=== PATIENT | female | born 1980 | race Caucasian/White ===

== ENCOUNTER 2017-01-07 18:03 | Emergency (ER) | payer MEDICAID, OTHER, SELFPAY ==
[2017-01-07 18:23] VITALS: BP 140/74
[2017-01-07] MEDS ORDERED: Acetaminophen 325 MG Tab PO ONE (18:37)
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
== END 2017-01-07 18:44 | disposition home or self-care (01) ==
LOC: MW.ED 18:03
DX: S16.1XXA Strain of muscle, fascia and tendon at neck level, initial encounter (principal); Z88.6 Allergy status to analgesic agent; Z88.1 Allergy status to other antibiotic agents; E66.9 Obesity, unspecified; Z68.43 Body mass index [BMI] 50.0-59.9, adult; Z90.49 Acquired absence of other specified parts of digestive tract; Z90.710 Acquired absence of both cervix and uterus; X50.0XXA Overexertion from strenuous movement or load, initial encounter
CPT/HCPCS: 99283

== ENCOUNTER 2017-07-01 11:43 | Emergency (ER) | payer MEDICAID, OTHER, SELFPAY ==
--- NOTE | 2017-07-01 11:54 | EDM.PDOC ---
ED HPI GENERAL MEDICAL PROBLEM - General Stated Complaint: PT HAS STOMACH PAINS Time Seen by Provider: 07/01/17 11:54 Source of Information: Reports: Patient History Limitations: Reports: No Limitations - History of Present Illness INITIAL COMMENTS - FREE TEXT/NARRATIVE: HISTORY AND PHYSICAL: History of present illness: Patient is a 37-year-old female who presents to the emergency room with complaints of left upper abdominal pain/low rib pain 3 days. She states that 4 days ago she did have her 9-year-old daughter (about 65 lbs) who was playing rough, jump and land on her left upper abdomen. She states that the next day she started to have some abdominal pain in that area. She was concerned that she may be constipated so she had been taking some stool softeners over-the- counter. She has had regular bowel movements since that time. She denies any flank pain, dysuria, blood in her stools, diarrhea/constipation, fever, chills, nausea or vomiting. Denies any chance of as she has had a hysterectomy. Review of systems: As per history of present illness and below otherwise all systems reviewed and negative. Past medical history: As per history of present illness and as reviewed below otherwise noncontributory. Surgical history: As per history of present illness and as reviewed below otherwise noncontributory. Social history: No reported history of drug or alcohol abuse. Family history: As per history of present illness and as reviewed below otherwise noncontributory. Physical exam: General: Well-developed and well-nourished 37-year-old female. Alert and oriented. Nontoxic appearing and in no acute distress. HEENT: Atraumatic, normocephalic, pupils reactive, negative for conjunctival pallor or scleral icterus, mucous membranes moist, throat clear, neck supple, nontender, trachea midline. Lungs: Clear to auscultation, breath sounds equal bilaterally, left lower chest wall tenderness with palpation (no bruising/swelling noted) Heart: S1S2, regular rate and rhythm Abdomen: Soft, nondistended, left upper quadrant tenderness. Negative for masses or hepatosplenomegaly. Negative for costovertebral tenderness. Pelvis: Stable nontender. Genitourinary: Deferred. Rectal: Deferred. Extremities: Atraumatic, moves all extremities per self without difficulty or deficits, negative for cords or calf pain. Neurovascular unremarkable. Neuro: Awake, alert, oriented. Cranial nerves II through XII unremarkable. Cerebellum unremarkable. Motor and sensory unremarkable throughout. Exam nonfocal. Patient is unable to void and does not want catheterization. CT of the abdomen shows no acute disease. Mild lymph node which appears to be reactive in nature. Informed patient of the lab results along with the CT results. She does have a slightly elevated AST and ALT. Encouraged her to follow up with her primary care provider for follow-up of this. Patient has an allergy to NSAIDs, encouraged her to use Tylenol [id number]. #10 Tramadol prescribed (NRF), as patient reports she is not managed with Tylenol at home. Encouraged her to alternate ice and heat. F/U with PCP in the next couple days. Diagnostics: CBC, CMP, amylase, lipase, UA and a chest x-ray, CT abdomen and pelvis Therapeutics: IV fluid Impression: #1 Abdominal pain #2 Rib contusion Plan: 1. Your lab work shows a slight bump in your AST/ALT (liver enzymes) which is not emergent, but should be followed within the next few weeks. 2. Chest x-ray and CT scans are normal at this time. 3. Please use Tylenol as needed for pain management. Alternating ice and heat. 4. Follow-up with your primary care provider in the next couple days. Return to the ED as needed and as discussed. Definitive disposition and diagnosis as appropriate pending reevaluation and review of above. Duration: Day(s): Location: Reports: Chest, Abdomen Left Upper Abdomen Pain Score (Numeric/FACES): 5 - Related Data Allergies Allergy/AdvReac Type Severity Reaction Status Date / Time aspirin Allergy Hives Verified 06/18/17 14:48 MST ketorolac tromethamine Allergy Difficulty Verified 06/18/17 14:48 MST [From Toradol] Breathing NSAIDS (Non-Steroidal Allergy Airway Verified 06/18/17 14:48 MST Anti-Inflamma Tightness, hives metronidazole [From Flagyl] AdvReac Diarrhea Verified 06/18/17 14:48 MST Home Meds: Home Meds Albuterol/Ipratropium [Combivent Respimat] 4 gm IH ASDIRECTED PRN 07/01/17 [ History] Past Medical History - Past Health History Medical/Surgical History: Denies Medical/Surgical History HEENT History: Reports: Other (See Below) Other HEENT History: cyst to posterior left ear Cardiovascular History: Reports: None Other Cardiovascular History: "palpitations" Respiratory History: Reports: Bronchitis, Recurrent Gastrointestinal History: Reports: None Genitourinary History: Reports: None [employer] WORKER History: Reports: 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 Uterine Bleeding, Other (See Below) Other OB/BYN History: blood clot in right ovary Musculoskeletal History: Reports: Fracture Neurological History: Reports: None Psychiatric History: Reports: None Endocrine/Metabolic History: Reports: Obesity/BMI 30+ Hematologic History: Reports: None Immunologic History: Reports: None Oncologic (Cancer) History: Reports: None Dermatologic History: Reports: None - Infectious Disease History Infectious Disease History: Reports: Chicken Pox - Past Surgical History Head Surgeries/Procedures: Reports: None GI Surgical History: Reports: Appendectomy, Cholecystectomy Female Surgical History: Reports: Hysterectomy Musculoskeletal Surgical History: Reports: Arthroscopic Procedure Social & Family History - Family History Family Medical History: Noncontributory - Tobacco Use Smoking Status *Q: Never Smoker Years of Tobacco use: 10 Packs/Tins Daily: 0.2 Used Tobacco, but Quit: Yes Month Tobacco Last Used: 1995 Second Hand Smoke Exposure: No - Caffeine Use Caffeine Use: Reports: Soda - Alcohol Use Days Per Week of Alcohol Use: 3 Number of Drinks Per Day: 1 Total Drinks Per Week: 3 - Recreational Drug Use Recreational Drug Use: No ED ROS GENERAL - Review of Systems Review Of Systems: ROS reveals no pertinent complaints other than HPI. ED EXAM, GI/ABD - Physical Exam Exam: See Below (See dictation) Course - Vital Signs Last Recorded V/S: Last Vital Signs Temp 97.1 F 07/01/17 12:11 Pulse 74 07/01/17 12:11 Resp 18 07/01/17 12:11 BP 122/58 L 07/01/17 12:11 Pulse Ox 96 07/01/17 12:11 - Orders/Labs/Meds Orders: Active Orders 24 hr Category Date Time Status Abdomen Pelvis w Cont [CT] Stat Exams 07/01/17 12:15 Taken Chest 2V [CR] Stat Exams 07/01/17 12:20 Taken UA W/MICROSCOPIC [URIN] Stat Lab 07/01/17 12:12 Uncollected Labs: Laboratory Tests 07/01/17 07/01/17 Range/Units 12:20 12:20 WBC 7.74 (4.0-11.0) K/uL RBC 4.77 (4.30-5.90) M/uL Hgb 12.6 (12.0-16.0) g/dL Hct 38.5 (36.0-46.0) % MCV 80.7 (80.0-98.0) fL MCH 26.4 L (27.0-32.0) pg MCHC 32.7 (31.0-37.0) g/dL RDW Std Deviation 44.2 (28.0-62.0) fl RDW Coeff of Mallory 15 (11.0-15.0) % Plt Count 245 (150-400) K/uL MPV 9.90 (7.40-12.00) fL Neut % (Auto) 71.3 (48.0-80.0) % Lymph % (Auto) 22.0 (16.0-40.0) % Green % (Auto) 6.6 (0.0-15.0) % Eos % (Auto) 0.0 (0.0-7.0) % Baso % (Auto) 0.1 (0.0-1.5) % Neut # (Auto) 5.5 (1.4-5.7) K/uL Lymph # (Auto) 1.7 (0.6-2.4) K/uL Green # (Auto) 0.5 (0.0-0.8) K/uL Eos # (Auto) 0.0 (0.0-0.7) K/uL Baso # (Auto) 0.0 (0.0-0.1) K/uL Nucleated RBC % 0.0 /100WBC Nucleated RBCs # 0 K/uL Sodium 139 (136-146) mmol/L Potassium 3.9 (3.5-5.1) mmol/L Chloride 109 (98-110) mmol/L Carbon Dioxide 22 (21-31) mmol/L BUN 12 (6.0-23.0) mg/dL Creatinine 0.7 (0.6-1.5) mg/dL Est Cr Clr Drug Dosing 118.99 mL/min Estimated GFR (MDRD) > 60.0 ml/min Glucose 99 (60-110) mg/dL Calcium 8.6 L (8.8-10.8) mg/dL Total Bilirubin 0.6 (0.1-1.5) mg/dL AST 41 H (5-40) IU/L ALT 76 H (8-54) IU/L Alkaline Phosphatase 99 (40-150) Total Protein 7.1 (6.0-8.0) g/dL Albumin 3.8 (3.5-5.0) g/dL Globulin 3.3 (2.0-3.5) g/dL Albumin/Globulin Ratio 1.2 L (1.3-2.8) Amylase 23 (10-90) U/L Lipase 9 (7-80) U/L Meds: Medications Discontinued Medications Generic Name Dose Route Start Last Admin Trade Name Freq PRN Reason Stop Dose Admin Sodium Chloride 1,000 mls @ 999 mls/hr 07/01/17 12:15 07/01/17 12:35 Normal Saline IV 07/01/17 13:15 999 mls/hr STAT ONE Administration Iopamidol 100 ml 07/01/17 12:48 07/01/17 12:50 Isovue-370 (76%) IVPUSH 07/01/17 12:49 100 ml ONETIME STA Administration Morphine Sulfate 2 mg 07/01/17 13:40 Morphine IVPUSH 07/01/17 13:41 ONETIME ONE Departure - Departure Time of Disposition: 13:47 Disposition: Home, Self-Care 01 Clinical Impression: Abdominal pain Qualifiers: Abdominal location: left upper quadrant Qualified Code(s): R10.12 - Left upper quadrant pain Contusion of rib on left side Qualifiers: Encounter type: initial encounter Qualified Code(s): S20.212A - Contusion of left front wall of thorax, initial encounter - Discharge Information Referrals: PCP,None [Primary Care Provider] - Additional Instructions: My general discharge The following information is given to patients seen in the emergency department who are being discharged to home. This information is to outline your options for follow-up care. We provide all patients seen in our emergency department with a follow-up referral. The need for follow-up, as well as the timing and circumstances, are variable depending upon the specifics of your emergency department visit. If you don't have a primary care physician on staff, we will provide you with a referral. We always advise you to contact your personal physician following an emergency department visit to inform them of the circumstance of the visit and for follow-up with them and/or the need for any referrals to a consulting specialist. The emergency department will also refer you to a specialist when appropriate. This referral assures that you have the opportunity for follow-up care with a specialist. All of these measure are taken in an effort to provide you with optimal care, which includes your follow-up. Under all circumstances we always encourage you to contact your private physician who remains a resource for coordinating your care. When calling for follow-up care, please make the office aware that this follow-up is from your recent emergency room visit. If for any reason you are refused follow-up, please contact the [facility] Emergency Department at and asked to speak to the emergency department charge nurse. [facility] [address] [place] [id number] 1. Your lab work shows a slight bump in your AST/ALT (liver enzymes) which is not emergent, but should be followed within the next few weeks. 2. Chest x-ray and CT scans are normal at this time. 3. Please use Tylenol as needed for pain management. Tramadol for night time use as it may cause drowsiness. Alternating ice and heat. 4. Follow-up with your primary care provider in the next couple days. Return to the ED as needed and as discussed. - My Orders Last 24 Hours: My Active Orders 07/01/17 12:12 UA W/MICROSCOPIC [URIN] Stat 07/01/17 12:15 Abdomen Pelvis w Cont [CT] Stat 07/01/17 12:20 Chest 2V [CR] Stat - Assessment/Plan Last 24 Hours: My Active Orders 07/01/17 12:12 UA W/MICROSCOPIC [URIN] Stat 07/01/17 12:15 Abdomen Pelvis w Cont [CT] Stat 07/01/17 12:20 Chest 2V [CR] Stat
[2017-07-01] MEDS ORDERED: Sodium Chloride 0.9% 1,000 ML IV ONE (12:15)
[2017-07-01] MEDS ORDERED: Iopamidol 755 Mg/ML 100 ML Bottle IVPUSH STA (12:48)
[2017-07-01 12:50] LABS: CHLORIDE,CL 109 mmol/L (98-110); SODIUM,NA 139 mmol/L (136-146)
[2017-07-01] MEDS ORDERED: Morphine 2 MG/ML Syringe IVPUSH ONE (13:40)
[2017-07-01 14:24] VITALS: BP 135/81
--- NOTE | 2017-07-03 14:16 | CR ---
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 Site : 1980 Study: XRay Chest [id number]/[id number] 1:08:30 PM Ordering Physician: Doctor Stephenson Final Report: INDICATION: Pain. Shortness of breath. TECHNIQUE: PA and lateral chest x-ray. Findings : Relatively shallow inspiration. Heart size normal. Lungs clear without infiltrate. Chest otherwise negative without acute disease. Dictated by Mick Dee MD @ Jul 01 2017 1:28PM (Electronic Signature) Report Signed by Proxy. SABA
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
== END 2017-07-01 14:24 | disposition home or self-care (01) ==
LOC: MW.ED 11:43
DX: S20.212A Contusion of left front wall of thorax, initial encounter (principal); R10.12 Left upper quadrant pain; Z88.6 Allergy status to analgesic agent; Z88.8 Allergy status to other drugs, medicaments and biological substances; X58.XXXA Exposure to other specified factors, initial encounter
CPT/HCPCS: 36415; 71046; 74177; 80053; 82150; 83690; 85025; 96361; 96374; 99284; J2270; J7040; Q9967; 99283

== ENCOUNTER 2017-09-04 16:07 | Emergency (ER) | payer MEDICAID, BC ==
[2017-09-04] MEDS ORDERED: Sodium Chloride 0.9% 1,000 ML IV ONE (16:12)
[2017-09-04] MEDS ORDERED: Ondansetron 4 MG/2 ML SDV IVPUSH ONE (16:15)
--- NOTE | 2017-09-04 16:36 | EDM.PDOC ---
ED HPI GENERAL MEDICAL PROBLEM - General Chief Complaint: Abdominal Pain Stated Complaint: STOMACH PAIN Time Seen by Provider: 09/04/17 16:12 Source of Information: Reports: Patient History Limitations: Reports: No Limitations - History of Present Illness INITIAL COMMENTS - FREE TEXT/NARRATIVE: HISTORY AND PHYSICAL: History of present illness: Patient is a 37-year-old female who presents to the emergency room today with complaints of left upper abdominal pain. She states on move a lot of heavy furniture and started to have left upper abdominal pain. She states she had take the whole weekend to lay down and rest as any movement or lifting of her left arm would cause increased pain and discomfort. Pain is to the left upper quadrant/rib area. She denies any fevers, chills, chest pain or shortness of breath. She denies any constipation, diarrhea or dysuria. Denies any blood in her stools. Review of systems: As per history of present illness and below otherwise all systems reviewed and negative. Past medical history: As per history of present illness and as reviewed below otherwise noncontributory. Surgical history: As per history of present illness and as reviewed below otherwise noncontributory. Social history: No reported history of drug or alcohol abuse. Family history: As per history of present illness and as reviewed below otherwise noncontributory. Physical exam: General: Well-developed and well-nourished 37-year-old female. Alert and oriented. Nontoxic appearing and in no acute distress. HEENT: Atraumatic, normocephalic, pupils equal and reactive bilaterally, negative for conjunctival pallor or scleral icterus, mucous membranes moist, throat clear, neck supple, nontender, trachea midline. No drooling or trismus noted. No meningeal signs Lungs: Clear to auscultation, breath sounds equal bilaterally, chest nontender. Heart: S1S2, regular rate and rhythm without overt murmur Abdomen: Soft, nondistended, obese, left upper quadrant tenderness. Negative for masses or hepatosplenomegaly. Negative for costovertebral tenderness. Pelvis: Stable nontender. Genitourinary: Deferred. Rectal: Deferred. Skin: Intact, warm, dry. No lesions or rashes noted. Extremities: Atraumatic, negative for cords or calf pain. Neurovascular unremarkable. Neuro: Awake, alert, oriented. Cranial nerves II through XII unremarkable. Cerebellum unremarkable. Motor and sensory unremarkable throughout. Exam nonfocal. Notes: Labs are within normal limits, although her liver enzymes are slightly elevated. CT of the abdomen shows no acute findings. Discussed these results with the patient. Due to the patient's story of doing a lot of heavy lifting I do feel that this is likely a muscular strain. Patient is requesting something for pain for home use. Will prescribe 10 tablets of tramadol. Encouraged her to do supportive care measures at home. Follow up with her primary caregiver in the next couple days. She voices understanding and is agreeable to plan of care. She denies any further questions at this time. Diagnostics: CBC, CMP, UA, HCGU, Amylase, Lipase, Therapeutics: IV fluid, Zofran, morphine Impression: Abdominal pain, nonspecific Muscular strain Plan: 1. Please use Tylenol and or ibuprofen as needed for pain management. Tramadol has been prescribed for moderate to severe pain. This medication may cause drowsiness so do not take while driving or needing to be functioning outside of the house. 2. Gentle heat and stretching to the area. 3. Your liver enzymes were slightly elevated today. Please follow-up with your area care provider in the next week or 2 for reevaluation. Return to the ED as needed and as discussed. Definitive disposition and diagnosis as appropriate pending reevaluation and review of above. Duration: Day(s): Location: Reports: Chest, Abdomen left abdominal Pain Score (Numeric/FACES): 8 - Related Data Allergies Allergy/AdvReac Type Severity Reaction Status Date / Time aspirin Allergy Hives Verified 09/04/17 16:20 ketorolac tromethamine Allergy Difficulty Verified 09/04/17 16:20 [From Toradol] Breathing NSAIDS (Non-Steroidal Allergy Airway Verified 09/04/17 16:20 Anti-Inflamma Tightness, hives metronidazole [From Flagyl] AdvReac Diarrhea Verified 09/04/17 16:20 Home Meds: Home Meds Albuterol/Ipratropium [Combivent Respimat] 4 gm IH ASDIRECTED PRN 07/01/17 [ History] Enoxaparin Sodium [Lovenox] 150 mg SQ BID 08/08/17 [History] Past Medical History - Past Health History Medical/Surgical History: Denies Medical/Surgical History HEENT History: Reports: Other (See Below) Other HEENT History: cyst to posterior left ear Cardiovascular History: Reports: Other (See Below) Other Cardiovascular History: "palpitations" Respiratory History: Reports: Bronchitis, Recurrent Gastrointestinal History: Reports: None Genitourinary History: Reports: None MEAT HOSTESS History: Reports: 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 Uterine Bleeding, Other (See Below) Other OB/BYN History: blood clot in right ovary Musculoskeletal History: Reports: Fracture Neurological History: Reports: None Psychiatric History: Reports: None Endocrine/Metabolic History: Reports: Obesity/BMI 30+ Hematologic History: Reports: Other (See Below) Immunologic History: Reports: None Oncologic (Cancer) History: Reports: None Dermatologic History: Reports: None - Infectious Disease History Infectious Disease History: Reports: Chicken Pox - Past Surgical History Head Surgeries/Procedures: Reports: None HEENT Surgical History: Reports: None Cardiovascular Surgical History: Reports: None Respiratory Surgical History: Reports: None GI Surgical History: Reports: Appendectomy, Cholecystectomy Female Surgical History: Reports: Hysterectomy Endocrine Surgical History: Reports: None Neurological Surgical History: Reports: None Musculoskeletal Surgical History: Reports: Arthroscopic Procedure Dermatological Surgical History: Reports: None Social & Family History - Family History Family Medical History: Noncontributory - Tobacco Use Smoking Status *Q: Never Smoker Years of Tobacco use: 10 Packs/Tins Daily: 0.2 Used Tobacco, but Quit: Yes Month/Year Tobacco Last Used: 1995 Second Hand Smoke Exposure: No - Caffeine Use Caffeine Use: Reports: None - Alcohol Use Days Per Week of Alcohol Use: 3 Number of Drinks Per Day: 1 Total Drinks Per Week: 3 - Recreational Drug Use Recreational Drug Use: No ED ROS GENERAL - Review of Systems Review Of Systems: ROS reveals no pertinent complaints other than HPI. ED EXAM, GI/ABD - Physical Exam Exam: See Below (See dictation) Course - Vital Signs Last Recorded V/S: Last Vital Signs Temp 97.5 F 09/04/17 16:21 Pulse 78 09/04/17 16:21 Resp 18 09/04/17 16:21 BP 138/86 09/04/17 16:21 Pulse Ox 99 09/04/17 16:21 - Orders/Labs/Meds Orders: Active Orders 24 hr Category Date Time Status Abdomen Pelvis w Cont [CT] Stat Exams 09/04/17 17:52 Taken HCG QUALITATIVE,URINE [URCHEM] Stat Lab 09/04/17 16:12 Ordered UA W/MICROSCOPIC [URIN] Stat Lab 09/04/17 16:12 Ordered Labs: Laboratory Tests 09/04/17 09/04/17 09/04/17 Range/Units 17:05 17:05 17:13 WBC 9.25 (4.0-11.0) K/uL RBC 4.75 (4.30-5.90) M/uL Hgb 12.7 (12.0-16.0) g/dL Hct 38.2 (36.0-46.0) % MCV 80.4 (80.0-98.0) fL MCH 26.7 L (27.0-32.0) pg MCHC 33.2 (31.0-37.0) g/dL RDW Std Deviation 44.4 (28.0-62.0) fl RDW Coeff of Mallory 16 H (11.0-15.0) % Plt Count 239 (150-400) K/uL MPV 9.40 (7.40-12.00) fL Neut % (Auto) 73.1 (48.0-80.0) % Lymph % (Auto) 20.6 (16.0-40.0) % Weakley % (Auto) 6.2 (0.0-15.0) % Eos % (Auto) 0.0 (0.0-7.0) % Baso % (Auto) 0.1 (0.0-1.5) % Neut # (Auto) 6.8 H (1.4-5.7) K/uL Lymph # (Auto) 1.9 (0.6-2.4) K/uL Weakley # (Auto) 0.6 (0.0-0.8) K/uL Eos # (Auto) 0.0 (0.0-0.7) K/uL Baso # (Auto) 0.0 (0.0-0.1) K/uL Nucleated RBC % 0.0 /100WBC Nucleated RBCs # 0 K/uL Sodium 142 (136-145) mmol/L Potassium 3.7 (3.5-5.1) mmol/L Chloride 106 (98-107) mmol/L Carbon Dioxide 27.0 (21.0-32.0) mmol/L BUN 7 (7.0-18.0) mg/dL Creatinine 0.7 (0.6-1.0) mg/dL Est Cr Clr Drug Dosing 118.99 mL/min Estimated GFR (MDRD) > 60.0 ml/min Glucose 88 (74-106) mg/dL Calcium 8.3 L (8.5-10.1) mg/dL Total Bilirubin 0.3 (0.2-1.0) mg/dL AST 58 H (15-37) IU/L ALT 72 H (14-63) IU/L Alkaline Phosphatase 105 (46-116) U/L Total Protein 6.6 (6.4-8.2) g/dL Albumin 3.2 L (3.4-5.0) g/dL Globulin 3.4 (2.0-3.5) g/dL Albumin/Globulin Ratio 0.9 L (1.3-2.8) Amylase 29 (25-115) U/L Lipase 158 (73-393) U/L HCG, Qual NEGATIVE (NEG) Meds: Medications Discontinued Medications Generic Name Dose Route Start Last Admin Trade Name Gerber PRN Reason Stop Dose Admin Sodium Chloride 1,000 mls @ 999 mls/hr 09/04/17 16:12 09/04/17 17:37 Normal Saline IV 09/04/17 17:12 999 mls/hr STAT ONE Administration Iopamidol 100 ml 09/04/17 18:48 09/04/17 18:53 Isovue-370 (76%) IVPUSH 09/04/17 18:49 100 ml ONETIME ONE Administration Morphine Sulfate 4 mg 09/04/17 17:37 09/04/17 17:59 Morphine IVPUSH 09/04/17 17:38 4 mg ONETIME ONE Administration Ondansetron HCl 8 mg 09/04/17 16:15 09/04/17 17:38 Zofran IVPUSH 09/04/17 16:16 8 mg ONETIME ONE Administration Departure - Departure Time of Disposition: 19:26 Disposition: Home, Self-Care 01 Clinical Impression: Nonspecific abdominal pain Muscle strain of chest wall Qualifiers: Encounter type: initial encounter Qualified Code(s): S29.011A - Strain of muscle and tendon of front wall of thorax, initial encounter - Discharge Information Referrals: PCP,None [Primary Care Provider] - Forms: ED Department Discharge Additional Instructions: The following information is given to patients seen in the emergency department who are being discharged to home. This information is to outline your options for follow-up care. We provide all patients seen in our emergency department with a follow-up referral. The need for follow-up, as well as the timing and circumstances, are variable depending upon the specifics of your emergency department visit. If you don't have a primary care physician on staff, we will provide you with a referral. We always advise you to contact your personal physician following an emergency department visit to inform them of the circumstance of the visit and for follow-up with them and/or the need for any referrals to a consulting specialist. The emergency department will also refer you to a specialist when appropriate. This referral assures that you have the opportunity for follow-up care with a specialist. All of these measure are taken in an effort to provide you with optimal care, which includes your follow-up. Under all circumstances we always encourage you to contact your private physician who remains a resource for coordinating your care. When calling for follow-up care, please make the office aware that this follow-up is from your recent emergency room visit. If for any reason you are refused follow-up, please contact the [facility] Emergency Department at and asked to speak to the emergency department charge nurse. [facility] [address] [place] [id number] 1. Please use Tylenol and or ibuprofen as needed for pain management. Tramadol has been prescribed for moderate to severe pain. This medication may cause drowsiness so do not take while driving or needing to be functioning outside of the house. 2. Gentle heat and stretching to the area. 3. Your liver enzymes were slightly elevated today. Please follow-up with your area care provider in the next week or 2 for reevaluation. Return to the ED as needed and as discussed. - My Orders Last 24 Hours: My Active Orders 09/04/17 16:12 HCG QUALITATIVE,URINE [URCHEM] Stat UA W/MICROSCOPIC [URIN] Stat 09/04/17 17:52 Abdomen Pelvis w Cont [CT] Stat - Assessment/Plan Last 24 Hours: My Active Orders 09/04/17 16:12 HCG QUALITATIVE,URINE [URCHEM] Stat UA W/MICROSCOPIC [URIN] Stat 09/04/17 17:52 Abdomen Pelvis w Cont [CT] Stat
[2017-09-04] MEDS ORDERED: Morphine 4 MG/ML Syringe IVPUSH ONE (17:37)
[2017-09-04 17:43] LABS: CHLORIDE,CL 106 mmol/L (98-107); SODIUM,NA 142 mmol/L (136-145)
[2017-09-04] MEDS ORDERED: Iopamidol 612 MG/ML 100 ML Bottle IVPUSH ONE (18:34)
[2017-09-04] MEDS ORDERED: Iopamidol 755 Mg/ML 100 ML Bottle IVPUSH ONE (18:48)
[2017-09-04 19:25] VITALS: BP 138/68
--- NOTE | 2017-09-05 09:55 | CT ---
EXAM DATE: 09/04/17 PATIENT'S AGE: 37 Patient: ROSALINE FISHER Facility: [place], [place] Site . Site : [id number] Study: CT Abdomen/Pelvis [id number]/9/2018 7:02:39 PM Ordering Physician: Doctor Stephenson Final Report: INDICATION: Left-sided abdominal pain for [address] ABDOMEN AND PELVIS WITH CONTRAST TECHNIQUE: Multidetector CT imaging was performed through the abdomen and pelvis following intravenous contrast administration using 100 mL Isovue 370. Coronal and sagittal reconstructions were generated. COMPARISON: 07/01/2017 CT abdomen and pelvis. FINDINGS: Lower chest: Mild bibasilar lung ground-glass density most consistent with atelectasis. Liver: Within normal limits. Gallbladder and bile ducts: Status post cholecystectomy, as before. No biliary dilation identified. Pancreas: Unremarkable. Spleen: Normal. Adrenals: No nodules or masses. Kidneys, ureters, and urinary bladder: No renal masses or hydronephrosis. No bladder mass or definite wall thickening. Gastrointestinal tract: Normal caliber bowel without wall thickening. Status post appendectomy, as before. Abdominal wall: Several small subcutaneous nodules over the anterior abdominal wall, the largest on the right, possibly related to prior subcutaneous medication injections. Unchanged very small fat-containing umbilical hernia. Vascular structures: Normal for age. Peritoneum: No free air, abscess, or significant free fluid. Lymph nodes: No pathologically enlarged nodes identified. Reproductive organs: Status post hysterectomy, as before. No pelvic masses. Bones: Degenerative disc disease at the lumbosacral junction. IMPRESSION: 1. No definite acute abnormality identified. No cause for the patient`s symptoms is evident. 2. Nonacute additional findings as detailed above. SYED VILLA MD [employer] Dictated by Sacha Villa MD @ 09/04/2017 7:21:20 PM Dictated by: Sacha Villa MD @ 09/04/2017 19:22:01 (Electronic Signature) Report Signed by Proxy. SABA
== END 2017-09-04 19:58 | disposition home or self-care (01) ==
LOC: MW.ED 16:07
DX: S29.011A Strain of muscle and tendon of front wall of thorax, initial encounter (principal); E66.9 Obesity, unspecified; Z88.8 Allergy status to other drugs, medicaments and biological substances; Z88.6 Allergy status to analgesic agent; Z88.1 Allergy status to other antibiotic agents; Z87.891 Personal history of nicotine dependence; X50.9XXA Other and unspecified overexertion or strenuous movements or postures, initial encounter
CPT/HCPCS: 36415; 74177; 80053; 82150; 83690; 84703; 85025; 96361; 96374; 96375; 99284; J2270; J2405; J7040; Q9967; 99283

== ENCOUNTER 2017-10-02 12:36 | Emergency (ER) | payer BC, MEDICAID ==
--- NOTE | 2017-10-02 13:11 | EDM.PDOC ---
ED HPI GENERAL MEDICAL PROBLEM - General Chief Complaint: Lower Extremity Injury/Pain Stated Complaint: SWOLLEN LEGS Time Seen by Provider: 10/02/17 12:40 Source of Information: Reports: Patient History Limitations: Reports: No Limitations - History of Present Illness INITIAL COMMENTS - FREE TEXT/NARRATIVE: HISTORY AND PHYSICAL: History of present illness: Patient is a 37-year-old female who presents to the emergency room with complaints of left lower extremity pain and swelling. She states that her left ankle and foot have been painful over the past week. She denies any injury or trauma. Concerned she may have "somehow" injured her left foot just resulted in pain, difficulty weightbearing and soft tissue swelling. No previous surgery or trauma to the affected extremity. Denies any numbness or tingling. Review of systems: As per history of present illness and below otherwise all systems reviewed and negative. Past medical history: As per history of present illness and as reviewed below otherwise noncontributory. Surgical history: As per history of present illness and as reviewed below otherwise noncontributory. Social history: No reported history of drug or alcohol abuse. Family history: As per history of present illness and as reviewed below otherwise noncontributory. Physical exam: General: Well-developed and well-nourished 37-year-old female. Alert and oriented. Nontoxic appearing and in no acute distress HEENT: Atraumatic, normocephalic, pupils equal and reactive bilaterally, negative for conjunctival pallor or scleral icterus, mucous membranes moist, throat clear, neck supple, nontender, trachea midline. No drooling or trismus noted. No meningeal signs Lungs: Clear to auscultation, breath sounds equal bilaterally, chest nontender. Heart: S1S2, regular rate and rhythm without overt murmur Abdomen: Soft, nondistended, nontender. Negative for masses or hepatosplenomegaly. Negative for costovertebral tenderness. Pelvis: Stable nontender. Genitourinary: Deferred. Rectal: Deferred. Skin: Intact, warm, dry. No lesions or rashes noted. Extremities: Atraumatic, moves all extremities per self without difficulty or deficits, no pinpoint bony tenderness with palpation, full range of motion, strong pedal pulses bilaterally, negative for cords or calf pain. Neurovascular unremarkable. Neuro: Awake, alert, oriented. Cranial nerves II through XII unremarkable. Cerebellum unremarkable. Motor and sensory unremarkable throughout. Exam nonfocal. Notes: X-ray shows no acute abnormality, dislocation or fracture. We'll give her a Yimi wrap and crutches. She is unable to take anti-inflammatories. We'll give her a limited amount of tramadol. Encouraged her to follow-up with the orthopedic provider. She voices understanding and is agreeable to plan of care. Denies any further questions at this time. Diagnostics: X-ray Therapeutics: Yimi wrap, crutches Impression: Left foot pain Plan: 1. Rest, ice, elevate the affected extremity. 2. Yimi wrap and crutches for comfort. Non-weight bearing for the next 1-3 days. 3. Follow-up with the orthopedic provider next week, or sooner as needed. Return to the ED as needed and as discussed. Definitive disposition and diagnosis as appropriate pending reevaluation and review of above. Left Feet Pain Score (Numeric/FACES): 7 - Related Data Allergies Allergy/AdvReac Type Severity Reaction Status Date / Time aspirin Allergy Hives Verified 10/02/17 13:03 ketorolac tromethamine Allergy Difficulty Verified 10/02/17 13:03 [From Toradol] Breathing NSAIDS (Non-Steroidal Allergy Airway Verified 10/02/17 13:03 Anti-Inflamma Tightness, hives metronidazole [From Flagyl] AdvReac Diarrhea Verified 10/02/17 13:03 Home Meds: Home Meds . 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 Uterine Bleeding, Other (See Below) Other OB/BYN History: blood clot in right ovary Musculoskeletal History: Reports: Fracture Neurological History: Reports: None Psychiatric History: Reports: None Endocrine/Metabolic History: Reports: Obesity/BMI 30+ Hematologic History: Reports: Other (See Below) Immunologic History: Reports: None Oncologic (Cancer) History: Reports: None Dermatologic History: Reports: None - Infectious Disease History Infectious Disease History: Reports: Chicken Pox - Past Surgical History Head Surgeries/Procedures: Reports: None HEENT Surgical History: Reports: None Cardiovascular Surgical History: Reports: None Respiratory Surgical History: Reports: None GI Surgical History: Reports: Appendectomy, Cholecystectomy Female Surgical History: Reports: Hysterectomy Endocrine Surgical History: Reports: None Neurological Surgical History: Reports: None Musculoskeletal Surgical History: Reports: Arthroscopic Procedure Dermatological Surgical History: Reports: None Social & Family History - Family History Family Medical History: Noncontributory - Tobacco Use Smoking Status *Q: Never Smoker Years of Tobacco use: 10 Packs/Tins Daily: 0.2 Used Tobacco, but Quit: Yes Month/Year Tobacco Last Used: 1995 Second Hand Smoke Exposure: No - Caffeine Use Caffeine Use: Reports: None - Alcohol Use Days Per Week of Alcohol Use: 3 Number of Drinks Per Day: 1 Total Drinks Per Week: 3 - Recreational Drug Use Recreational Drug Use: No Review of Systems - Review of Systems Review Of Systems: ROS reveals no pertinent complaints other than HPI. ED EXAM, GENERAL - Physical Exam Exam: See Below (See dictation) Course - Vital Signs Last Recorded V/S: Last Vital Signs Temp 96.8 F 10/02/17 12:59 Pulse 78 10/02/17 12:59 Resp 18 10/02/17 12:59 BP 134/63 10/02/17 12:59 Pulse Ox 99 10/02/17 12:59 - Orders/Labs/Meds Orders: Active Orders 24 hr Category Date Time Status DME for Discharge [COMM] Stat Oth 10/02/17 14:16 Ordered Departure - Departure Time of Disposition: 14:14 Disposition: Home, Self-Care 01 Clinical Impression: Foot pain, left - Discharge Information Instructions: Acute Pain, Adult Referrals: PCP,None [Primary Care Provider] - Forms: ED Department Discharge Additional Instructions: The following information is given to patients seen in the emergency department who are being discharged to home. This information is to outline your options for follow-up care. We provide all patients seen in our emergency department with a follow-up referral. The need for follow-up, as well as the timing and circumstances, are variable depending upon the specifics of your emergency department visit. If you don't have a primary care physician on staff, we will provide you with a referral. We always advise you to contact your personal physician following an emergency department visit to inform them of the circumstance of the visit and for follow-up with them and/or the need for any referrals to a consulting specialist. The emergency department will also refer you to a specialist when appropriate. This referral assures that you have the opportunity for follow-up care with a specialist. All of these measure are taken in an effort to provide you with optimal care, which includes your follow-up. Under all circumstances we always encourage you to contact your private physician who remains a resource for coordinating your care. When calling for follow-up care, please make the office aware that this follow-up is from your recent emergency room visit. If for any reason you are refused follow-up, please contact the [facility] Emergency Department at and asked to speak to the emergency department charge nurse. [facility] [address], [address] [place] [address] 1. Rest, ice, elevate the affected extremity. 2. Yimi wrap and crutches for comfort. Non-weight bearing for the next 1-3 days. 3. Follow-up with the orthopedic provider next week, or sooner as needed. Return to the ED as needed and as discussed. - My Orders Last 24 Hours: My Active Orders 10/02/17 14:16 DME for Discharge [COMM] Stat - Assessment/Plan Last 24 Hours: My Active Orders 10/02/17 14:16 DME for Discharge [COMM] Stat
--- NOTE | 2017-10-02 14:01 | CR ---
EXAMINATION: Left foot HISTORY: Pain COMPARISON: None TECHNIQUE: 3 views FINDINGS/IMPRESSION: There is no acute osseous abnormality, dislocation, or fracture. Bone mineraliza tion and joint spaces appear normal. Mild soft tissue swelling dorsally and laterally.
[2017-10-02 14:56] VITALS: BP 114/71
== END 2017-10-02 14:58 | disposition home or self-care (01) ==
LOC: MW.ED 12:36
DX: M79.672 Pain in left foot (principal); Z88.6 Allergy status to analgesic agent; Z88.1 Allergy status to other antibiotic agents; Z88.8 Allergy status to other drugs, medicaments and biological substances; Z87.891 Personal history of nicotine dependence
CPT/HCPCS: 73630-26-LT; 73630-LT; 99284

== ENCOUNTER 2017-11-16 00:27 | Emergency (ER) | payer BC, MEDICAID ==
[2017-11-16 00:46] VITALS: BP 146/90
--- NOTE | 2017-11-16 01:01 | EDM.PDOC ---
ED HPI GENERAL MEDICAL PROBLEM - General Chief Complaint: Upper Extremity Injury/Pain Stated Complaint: POSSIBLE TEAR OF RIGHT ROTATOR CUFF Time Seen by Provider: 11/16/17 00:54 Source of Information: Reports: Patient History Limitations: Reports: No Limitations - History of Present Illness INITIAL COMMENTS - FREE TEXT/NARRATIVE: HISTORY AND PHYSICAL: History of present illness: 37-year-old female presenting to emergency department with chief complaint right shoulder pain after injury tonight. Patient states that she was in the process of closing their large metal garage door when their daughter tried to run underneath it so stuck her left arm out to stop the door from closing. States she basically reached out with her left arm/shoulder in an extended position stopping the door just with her left arm outstretched. She felt immediate pain and tearing in her left shoulder. Did not hear any pops. Admits to a partial rotator cuff tear in 2011 that was not surgically repaired and was treated with conservative measures and physical therapy. Currently states that she has significant pain to the left deltoid region as well as posterior aspect of the left shoulder. Refuses to raise arm as she states it is very painful. She denies any weakness or neurosensory deficits. States that it is just extremely painful to move that right arm in any fashion especially in abduction as well as posterior direction. Patient denies any trauma to any other areas or injuries. She currently denies any chest pain, palpitations, shortness of breath, syncopal episode, or focal neurologic deficits. Patient difficult to examine secondary to pain and refusal of moving right extremity. She does have deltoid pain on palpation. Seems to have weakness in external rotation as well as positive drop arm test and active painful arc but as above very difficult to get a true assessment on exam as acutely in pain with all motion. Did not appreciate any bony step-offs or significant bony abnormalities on palpation. X-ray of right shoulder revealed a right lateral humeral joint effusion causing mild pseudosubluxation but no fractures or bony lesions. Review of systems: As per history of present illness and below otherwise all systems reviewed and negative. Past medical history: As per history of present illness and as reviewed below otherwise noncontributory. Surgical history: As per history of present illness and as reviewed below otherwise noncontributory. Social history: No reported history of drug or alcohol abuse. Family history: As per history of present illness and as reviewed below otherwise noncontributory. Physical exam: HEENT: Atraumatic, normocephalic, pupils reactive, negative for conjunctival pallor or scleral icterus, mucous membranes moist, throat clear, neck supple, nontender, trachea midline. Lungs: Clear to auscultation, breath sounds equal bilaterally, chest nontender. Heart: S1S2, regular, negative for clicks, rubs, or JVD. Abdomen: Soft, nondistended, nontender. Negative for masses or hepatosplenomegaly. Negative for costovertebral tenderness. Pelvis: Stable nontender. Genitourinary: Deferred. Rectal: Deferred. Extremities: See above H&P Atraumatic, negative for cords or calf pain. Neurovascular unremarkable. Neuro: Awake, alert, oriented. Cranial nerves II through XII unremarkable. Cerebellum unremarkable. Motor and sensory unremarkable throughout. Exam nonfocal. Diagnostics: Right shoulder x-ray Therapeutics: Dilaudid 2 mg IM 1 Impression: Suspected right rotator cuff tear Glenohumeral joint effusion Plan: As above x-ray showed no significant osseous abnormalities. Secondary patient's presentation as well as history suspect rotator cuff injury. Patient was given prescription for tramadol 50 mg by mouth every 6 hours #12 for pain as she is allergic to ibuprofen. I did check in [place] [facility] for multiple prescriptions are providers. Patient was discharged with a sling as well as instructions to follow-up with orthopedic surgery and her primary care provider. She should rest , ice, injury and return to emergency department if she has any new or worsening symptoms. right shoulder Pain Score (Numeric/FACES): 10 - Related Data Allergies Allergy/AdvReac Type Severity Reaction Status Date / Time aspirin Allergy Hives Verified 11/16/17 00:46 ketorolac tromethamine Allergy Difficulty Verified 11/16/17 00:46 [From Toradol] Breathing NSAIDS (Non-Steroidal Allergy Airway Verified 11/16/17 00:46 Anti-Inflamma Tightness, hives metronidazole [From Flagyl] AdvReac Diarrhea Verified 11/16/17 00:46 Home Meds: Home Meds Warfarin [Coumadin] 0 mg PO DAILY 11/16/17 [History] Past Medical History - Past Health History Medical/Surgical History: Denies Medical/Surgical History HEENT History: Reports: Other (See Below) Other HEENT History: cyst to posterior left ear Cardiovascular History: Reports: Other (See Below) Other Cardiovascular History: "palpitations" Respiratory History: Reports: Bronchitis, Recurrent Gastrointestinal History: Reports: None Genitourinary History: Reports: None 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 Uterine Bleeding, Other (See Below) Other OB/BYN History: blood clot in right ovary Musculoskeletal History: Reports: Fracture Neurological History: Reports: None Psychiatric History: Reports: None Endocrine/Metabolic History: Reports: Obesity/BMI 30+ Hematologic History: Reports: Other (See Below) Immunologic History: Reports: None Oncologic (Cancer) History: Reports: None Dermatologic History: Reports: None - Infectious Disease History Infectious Disease History: Reports: Chicken Pox - Past Surgical History Head Surgeries/Procedures: Reports: None HEENT Surgical History: Reports: None Cardiovascular Surgical History: Reports: None Respiratory Surgical History: Reports: None GI Surgical History: Reports: Appendectomy, Cholecystectomy Female Surgical History: Reports: Hysterectomy Endocrine Surgical History: Reports: None Neurological Surgical History: Reports: None Musculoskeletal Surgical History: Reports: Arthroscopic Procedure, Shoulder Surgery Dermatological Surgical History: Reports: None Social & Family History - Family History Family Medical History: Noncontributory - Tobacco Use Smoking Status *Q: Never Smoker - Caffeine Use Caffeine Use: Reports: None - Recreational Drug Use Recreational Drug Use: No Review of Systems - Review of Systems Review Of Systems: ROS reveals no pertinent complaints other than HPI. ED EXAM, GENERAL - Physical Exam Exam: See Below Course - Vital Signs Last Recorded V/S: Last Vital Signs Temp 98.1 F 11/16/17 00:27 Pulse 95 11/16/17 00:27 Resp 18 11/16/17 00:27 BP 146/90 H 11/16/17 00:27 Pulse Ox 99 11/16/17 00:27 - Orders/Labs/Meds Orders: Active Orders 24 hr Category Date Time Status Shoulder Comp Rt [CR] Stat Exams 11/16/17 01:22 Taken Meds: Medications Discontinued Medications Generic Name Dose Route Start Last Admin Trade Name Freq PRN Reason Stop Dose Admin Hydromorphone HCl 2 mg 11/16/17 01:10 11/16/17 01:27 Dilaudid IM 11/16/17 01:11 2 mg ONETIME ONE Administration Departure - Departure Time of Disposition: 02:25 Disposition: Home, Self-Care 01 Condition: Good Clinical Impression: Effusion of glenohumeral joint of right upper extremity Injury of right rotator cuff Qualifiers: Encounter type: initial encounter Qualified Code(s): S46.001A - Unspecified injury of muscle(s) and tendon(s) of the rotator cuff of right shoulder, initial encounter - Discharge Information Referrals: PCP,None [Primary Care Provider] - Forms: ED Department Discharge Additional Instructions: My general discharge The following information is given to patients seen in the emergency department who are being discharged to home. This information is to outline your options for follow-up care. We provide all patients seen in our emergency department with a follow-up referral. The need for follow-up, as well as the timing and circumstances, are variable depending upon the specifics of your emergency department visit. If you don't have a primary care physician on staff, we will provide you with a referral. We always advise you to contact your personal physician following an emergency department visit to inform them of the circumstance of the visit and for follow-up with them and/or the need for any referrals to a consulting specialist. The emergency department will also refer you to a specialist when appropriate. This referral assures that you have the opportunity for follow-up care with a specialist. All of these measure are taken in an effort to provide you with optimal care, which includes your follow-up. Under all circumstances we always encourage you to contact your private physician who remains a resource for coordinating your care. When calling for follow-up care, please make the office aware that this follow-up is from your recent emergency room visit. If for any reason you are refused follow-up, please contact the [facility] Emergency Department at and asked to speak to the emergency department charge nurse. [facility] Specialty Care - Orthopedic Clinic Professional Building [address] [place] [address], [address] [place] [address] 1. Take medications as prescribed. 2. Rest and ice area of injury. 3. Follow-up with orthopedic surgery with number above. 4. Follow-up with primary care provider. 5. Return emergency department if any new or worsening symptoms - My Orders Last 24 Hours: My Active Orders 11/16/17 01:22 Shoulder Comp Rt [CR] Stat - Assessment/Plan Last 24 Hours: My Active Orders 11/16/17 01:22 Shoulder Comp Rt [CR] Stat
[2017-11-16] MEDS ORDERED: HYDROmorphone 2 MG/ML SDV IM ONE (01:10)
--- NOTE | 2017-11-16 09:35 | CR ---
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 Site : [id number] Study: XRay Shoulder Right [id number]/21/2018 1:52:04 AM Ordering Physician: Doctor Stephenson Final Report: INDICATION: pain, trauma TECHNIQUE: Two views of the right shoulder COMPARISON: None FINDINGS: Bones: No fractures or bone lesions. Joint spaces: Right glenohumeral joint effusion causing a mild pseudosubluxation. Soft tissues: Unremarkable. IMPRESSION: Right glenohumeral joint effusion causing mild pseudosubluxation. Dictated by Marques Rangel MD @ 11/16/2017 1:53:40 AM Dictated by: Marques Rangel MD @ 11/16/2017 01:53:46 (Electronic Signature) Report Signed by Proxy. SABA
== END 2017-11-16 02:44 | disposition home or self-care (01) ==
LOC: MW.ED 00:27
DX: S46.001A Unspecified injury of muscle(s) and tendon(s) of the rotator cuff of right shoulder, initial encounter (principal); M25.411 Effusion, right shoulder; X50.1XXA Overexertion from prolonged static or awkward postures, initial encounter; Z88.6 Allergy status to analgesic agent; Z88.5 Allergy status to narcotic agent; Z79.01 Long term (current) use of anticoagulants
CPT/HCPCS: 73030; 96372; 99283; J1170

== ENCOUNTER 2017-11-18 15:39 | Emergency (ER) | payer MEDICAID ==
[2017-11-18] MEDS ORDERED: HYDROmorphone 2 MG/ML SDV IM ONE (16:14)
--- NOTE | 2017-11-18 16:20 | EDM.PDOC ---
ED HPI GENERAL MEDICAL PROBLEM - General Chief Complaint: Upper Extremity Injury/Pain Stated Complaint: PAIN IN RT SHOULDER Time Seen by Provider: 11/18/17 15:40 Source of Information: Reports: Patient History Limitations: Reports: No Limitations - History of Present Illness INITIAL COMMENTS - FREE TEXT/NARRATIVE: HISTORY AND PHYSICAL: History of present illness: [Yvette is a 37-year-old female here for right shoulder pain. She presented to the ED 2 days ago for right shoulder pain following injury. She reports she was in her shop and her daughter was going under the shop door and tripped just as the door was going down. She attempted to catch and stop the door by grabbing it with her right arm oustretched. She states this caused her to fall to the ground and she immediately felt a tearing sensation in her arm. X-ray of her shoulder showed right glenohumeral joint effusion. She was given percocet which she states was taking the edge off but she was only given #10 and she is out. She is schedule to see orthopedics on 11/24. Her pain is currently 11/05. She denies any other injuries. ] Review of systems: As per history of present illness and below otherwise all systems reviewed and negative. Past medical history: As per history of present illness and as reviewed below otherwise noncontributory. Surgical history: As per history of present illness and as reviewed below otherwise noncontributory. Social history: No reported history of drug or alcohol abuse. Family history: As per history of present illness and as reviewed below otherwise noncontributory. Physical exam: HEENT: Atraumatic, normocephalic, pupils reactive, negative for conjunctival pallor or scleral icterus, mucous membranes moist, throat clear, neck supple, nontender, trachea midline. Lungs: Clear to auscultation, breath sounds equal bilaterally, chest nontender. Heart: S1S2, regular, negative for clicks, rubs, or JVD. Abdomen: Soft, nondistended, nontender. Negative for masses or hepatosplenomegaly. Negative for costovertebral tenderness. Pelvis: Stable nontender. Genitourinary: Deferred. Rectal: Deferred. Extremities: Patient has right arm in a sling. ROM limited due to pain. Tender to palpation of lateral and anterior deltoid and at AC joint. Neuro: Awake, alert, oriented. Cranial nerves II through XII unremarkable. Cerebellum unremarkable. Motor and sensory unremarkable throughout. Exam nonfocal. Notes: Diagnostics: [] Therapeutics: [Dilaudid 2mg IM ] Impression: [Right shoulder pain, suspected rotator cuff tear] Plan: [Patient was given Rx for percocet. She was advised to follow up with her primary care provider for further pain management if necessary. ] Definitive disposition and diagnosis as appropriate pending reevaluation and review of above. - Related Data Allergies Allergy/AdvReac Type Severity Reaction Status Date / Time aspirin Allergy Hives Verified 11/18/17 15:55 ketorolac tromethamine Allergy Difficulty Verified 11/18/17 15:55 [From Toradol] Breathing NSAIDS (Non-Steroidal Allergy Airway Verified 11/18/17 15:55 Anti-Inflamma Tightness, hives metronidazole [From Flagyl] AdvReac Diarrhea Verified 11/18/17 15:55 Home Meds: Home Meds Warfarin [Coumadin] 0 mg PO DAILY 11/16/17 [History] oxyCODONE HCl/Acetaminophen [Percocet 10-325 mg Tablet] 1 tab PO DAILY 11/18/17 [History] Past Medical History - Past Health History Medical/Surgical History: Denies Medical/Surgical History HEENT History: Reports: Other (See Below) Other HEENT History: cyst to posterior left ear Cardiovascular History: Reports: Other (See Below) Other Cardiovascular History: "palpitations" Respiratory History: Reports: Bronchitis, Recurrent Gastrointestinal History: Reports: None Genitourinary History: Reports: None 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 Uterine Bleeding, Other (See Below) Other OB/BYN History: blood clot in right ovary Musculoskeletal History: Reports: Fracture Neurological History: Reports: None Psychiatric History: Reports: None Endocrine/Metabolic History: Reports: Obesity/BMI 30+ Hematologic History: Reports: Other (See Below) Immunologic History: Reports: None Oncologic (Cancer) History: Reports: None Dermatologic History: Reports: None - Infectious Disease History Infectious Disease History: Reports: Chicken Pox - Past Surgical History Head Surgeries/Procedures: Reports: None HEENT Surgical History: Reports: None Cardiovascular Surgical History: Reports: None Respiratory Surgical History: Reports: None GI Surgical History: Reports: Appendectomy, Cholecystectomy Female Surgical History: Reports: Hysterectomy Endocrine Surgical History: Reports: None Neurological Surgical History: Reports: None Musculoskeletal Surgical History: Reports: Arthroscopic Procedure, Shoulder Surgery Dermatological Surgical History: Reports: None Social & Family History - Family History Family Medical History: Noncontributory - Tobacco Use Smoking Status *Q: Never Smoker Second Hand Smoke Exposure: Yes - Caffeine Use Caffeine Use: Reports: None - Recreational Drug Use Recreational Drug Use: No Review of Systems - Review of Systems Review Of Systems: ROS reveals no pertinent complaints other than HPI. ED EXAM, GENERAL - Physical Exam Exam: See Below Course - Vital Signs Last Recorded V/S: Last Vital Signs Temp 36.2 C 11/18/17 15:55 Pulse 86 11/18/17 15:55 Resp 18 11/18/17 15:55 BP 141/74 H 11/18/17 15:55 Pulse Ox 97 11/18/17 15:55 - Orders/Labs/Meds Meds: Medications Discontinued Medications Generic Name Dose Route Start Last Admin Trade Name Freq PRN Reason Stop Dose Admin Hydromorphone HCl 2 mg 11/18/17 16:14 Dilaudid IM 11/18/17 16:15 ONETIME ONE Departure - Departure Time of Disposition: 16:22 Disposition: Home, Self-Care 01 Clinical Impression: Shoulder pain, right Qualifiers: Chronicity: acute Qualified Code(s): M25.511 - Pain in right shoulder - Discharge Information Referrals: PCP,None [Primary Care Provider] - Forms: ED Department Discharge Additional Instructions: The following information is given to patients seen in the emergency department who are being discharged to home. This information is to outline your options for follow-up care. We provide all patients seen in our emergency department with a follow-up referral. The need for follow-up, as well as the timing and circumstances, are variable depending upon the specifics of your emergency department visit. If you don't have a primary care physician on staff, we will provide you with a referral. We always advise you to contact your personal physician following an emergency department visit to inform them of the circumstance of the visit and for follow-up with them and/or the need for any referrals to a consulting specialist. The emergency department will also refer you to a specialist when appropriate. This referral assures that you have the opportunity for follow-up care with a specialist. All of these measure are taken in an effort to provide you with optimal care, which includes your follow-up. Under all circumstances we always encourage you to contact your private physician who remains a resource for coordinating your care. When calling for follow-up care, please make the office aware that this follow-up is from your recent emergency room visit. If for any reason you are refused follow-up, please contact the [facility] Emergency Department at and asked to speak to the emergency department charge nurse. [facility] Primary Care [address] [place] [address] [address] [facility] Specialty Care - Orthopedic Clinic Professional [facility] [address] [place] [address], [address] [place] [address] #1 take medication as prescribed #2 wear sling and ice as instructed #3 follow up with PCP and orthopedic provider #4 return to ED as needed as discussed
[2017-11-18] MEDS ORDERED: HYDROmorphone 1 MG/ML Syringe ONE (16:34)
[2017-11-18] MEDS ORDERED: HYDROmorphone 1 MG/ML Syringe IM ONE (16:39)
[2017-11-18 16:57] VITALS: BP 136/73
== END 2017-11-18 16:56 | disposition home or self-care (01) ==
LOC: MW.ED 15:39
DX: M25.511 Pain in right shoulder (principal); Z88.6 Allergy status to analgesic agent; Z88.8 Allergy status to other drugs, medicaments and biological substances; Z79.01 Long term (current) use of anticoagulants; Z77.22 Contact with and (suspected) exposure to environmental tobacco smoke (acute) (chronic)
CPT/HCPCS: 96372; 99283; J1170

== ENCOUNTER 2018-06-04 20:28 | Emergency (ER) | payer MEDICAID ==
--- NOTE | 2018-06-04 20:48 | EDM.PDOC ---
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 Past medical history: As per history of present illness and as reviewed below otherwise noncontributory. Surgical history: As per history of present illness and as reviewed below otherwise noncontributory. Social history: No reported history of drug or alcohol abuse. Family history: As per history of present illness and as reviewed below otherwise noncontributory. Physical exam: Obese female who is crying with pain. She is having difficulty standing from a sitting position. It is warm and dry HEENT: Atraumatic, normocehpalic, pupils reactive, negative for conjunctival pallor or scleral icterus, mucous membranes moist, throat clear, neck supple, nontender, trachea midline. Lungs: Clear to auscultation, breath sounds equal bilaterally, chest non tender. Heart: S1S2, regular, negative for clicks, rubs, or JVD. Abdomen: Soft, nondistended, nontender. Negative for masses or hepatossplenmegaly. Negative for costovertebral tenderness. Pain at the right sciatic Pelvis: Stable nontender. Genitourinary: Deferred. Rectal: Deferred Extremities: Atraumatic, negative for cords or calf pain. She is able to lift her legs up from sitting position on the cart Neurovascular unremarkable. Neuro: Awake, alert, oriented. Cranial nerves II through XII unremarkable. Cerebellum unremarkable. Motor and sensory unremarkable throughout. Exam nonfocal. Diagnostics: []X-ray right hip Therapeutics: []0.5 mg Dilaudid IM Impression: []Right sciatic pain Right hip pain Plan: []Discharge Flexeril 10 mg Tramadol Follow-up with your primary care provider in the next 2 days Return to the emergency department as directed Definitive disposition and diagnosis as appropriate pending reevaluation and review of above. Onset: Sudden Duration: Day(s): (1), Getting Worse right buttock Pain Score (Numeric/FACES): 10 - Related Data Allergies Allergy/AdvReac Type Severity Reaction Status Date / Time aspirin Allergy Hives Verified 06/04/18 20:33 ketorolac tromethamine Allergy Difficulty Verified 06/04/18 20:33 [From Toradol] Breathing NSAIDS (Non-Steroidal Allergy Airway Verified 06/04/18 20:33 Anti-Inflamma Tightness, hives metronidazole [From Flagyl] AdvReac Diarrhea Verified 06/04/18 20:33 Home Meds: Home Meds Gabapentin [Neurontin] 800 mg PO TID 03/07/18 [History] Multivitamin [Multivitamins] 1 tab PO DAILY 03/07/18 [History] Ipratropium/Albuterol Sulfate [Combivent Respimat 20-100 Mcg] 1 puff INH ASDIRECTED PRN 06/04/18 [History] Past Medical History - Past Health History Medical/Surgical History: Denies Medical/Surgical History HEENT History: Reports: Other (See Below) Other HEENT History: cyst to posterior left ear Cardiovascular History: Reports: Other (See Below) Other Cardiovascular History: "palpitations" Respiratory History: Reports: Bronchitis, Recurrent Gastrointestinal History: Reports: None Genitourinary History: Reports: None CLEARING SUPERVISOR History: Reports: 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 Uterine Bleeding, Other (See Below) Other CLEARING SUPERVISOR History: blood clot in right ovary Musculoskeletal History: Reports: Fracture Neurological History: Reports: None Psychiatric History: Reports: None Endocrine/Metabolic History: Reports: Obesity/BMI 30+ Hematologic History: Reports: Other (See Below) Immunologic History: Reports: None Oncologic (Cancer) History: Reports: None Dermatologic History: Reports: None - Infectious Disease History Infectious Disease History: Reports: Chicken Pox - Past Surgical History Head Surgeries/Procedures: Reports: None Respiratory Surgical History: Reports: None GI Surgical History: Reports: Appendectomy, Cholecystectomy Female Surgical History: Reports: Hysterectomy, Tubal Ligation Neurological Surgical History: Reports: None Dermatological Surgical History: Reports: None Social & Family History - Family History Family Medical History: Noncontributory - Tobacco Use Smoking Status *Q: Never Smoker - Caffeine Use Caffeine Use: Reports: None - Recreational Drug Use Recreational Drug Use: No - Living Situation & Occupation Living situation: Reports: , with Spouse, with Family (4 lids) Occupation: Unemployed ED ROS GENERAL - Review of Systems Review Of Systems: ROS reveals no pertinent complaints other than HPI. ED EXAM,LOWER BACK PAIN/INJURY - Physical Exam Exam: See Below (see dictation) Course - Vital Signs Last Recorded V/S: Last Vital Signs Temp 36.5 C 06/04/18 20:30 Pulse 95 06/04/18 20:30 Resp 18 06/04/18 20:30 BP 127/89 06/04/18 20:30 Pulse Ox 99 06/04/18 20:30 - Orders/Labs/Meds Orders: Active Orders 24 hr Category Date Time Status Hip Min 2V or 3V Rt [CR] Stat Exams 06/04/18 20:51 Taken Meds: Medications Discontinued Medications Generic Name Dose Route Start Last Admin Trade Name Gerber PRN Reason Stop Dose Admin Hydromorphone HCl 0.5 mg 06/04/18 20:54 Dilaudid IM 06/04/18 20:55 ONETIME ONE Hydromorphone HCl 0.5 mg 06/04/18 21:00 06/04/18 21:07 Dilaudid IM 06/04/18 21:01 0.5 mg ONETIME ONE Administration Departure - Departure Time of Disposition: 21:50 Disposition: Home, Self-Care 01 Condition: Good Clinical Impression: Right hip pain Sciatica Qualifiers: Laterality: right Qualified Code(s): M54.31 - Sciatica, right side - Discharge Information Instructions: Hip Pain, Muscle Strain, [id number] Referrals: PCP,None [Primary Care Provider] - Forms: ED Department Discharge Additional Instructions: The following information is given to patients seen in the emergency department who are being discharged to home. This information is to outline your options for follow-up care. We provide all patients seen in our emergency department with a follow-up referral. The need for follow-up, as well as the timing and circumstances, are variable depending upon the specifics of your emergency department visit. If you don't have a primary care physician on staff, we will provide you with a referral. We always advise you to contact your personal physician following an emergency department visit to inform them of the circumstance of the visit and for follow-up with them and/or the need for any referrals to a consulting specialist. The emergency department will also refer you to a specialist when appropriate. This referral assures that you have the opportunity for followup care with a specialist. All of these measure are taken in an effort to provide you with optimal care, which includes your followup. Under all circumstances we always encourage you to contact your private physician who remains a resource for coordinating your care. When calling for followup care, please make the office aware that this follow-up is from your recent emergency room visit. If for any reason you are refused follow-up, please contact the [facility] emergency department at and asked to speak to the emergency department charge nurse. Discharge Flexeril 10 mg Tramadol Follow-up with your primary care provider in the next 2 days Return to the emergency department as directed Definitive disposition and diagnosis as appropriate pending reevaluation and review of above. - My Orders Last 24 Hours: My Active Orders 06/04/18 20:51 Hip Min 2V or 3V Rt [CR] Stat - Assessment/Plan Last 24 Hours: My Active Orders 06/04/18 20:51 Hip Min 2V or 3V Rt [CR] Stat
[2018-06-04] MEDS ORDERED: HYDROmorphone 2 MG/ML SDV IM ONE (20:54)
[2018-06-04] MEDS ORDERED: HYDROmorphone 1 MG/ML Syringe IM ONE (21:00)
[2018-06-04] MEDS ORDERED: traMADol 50 MG Tab PO ONE (21:52)
[2018-06-04] MEDS ORDERED: Cyclobenzaprine 10 MG Tab PO ONE (21:52)
[2018-06-04 22:24] VITALS: BP 120/70
--- NOTE | 2018-06-05 11:35 | CR ---
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 Site : 1980 Study: XRay Hip Right [id number]/7/2019 9:25:29 PM Ordering Physician: Doctor Stephenson Final Report: INDICATION: Pelvic and hip injury from fall TECHNIQUE: Hip radiograph 2 views right COMPARISON: None FINDINGS: Bone: No acute fractures or aggressive bone lesions are identified. Joint: The hip joint is unremarkable. The visualized sacroiliac joints are unremarkable in appearance. The pubic symphysis is normal in appearance. Soft tissue: Unremarkable. No radiopaque foreign bodies are seen. IMPRESSION: 1. No acute osseous injuries or abnormalities are noted. Dictated by: Freddy Valenzuela MD @ 06/04/2018 22:01:51 (Electronic Signature) Report Signed by Proxy. SABA
== END 2018-06-04 22:20 | disposition home or self-care (01) ==
LOC: MW.ED 20:28
DX: M54.31 Sciatica, right side (principal); Z88.8 Allergy status to other drugs, medicaments and biological substances; Z79.899 Other long term (current) drug therapy
CPT/HCPCS: 73502; 96372; 99283; A9270; J1170

== ENCOUNTER 2018-06-17 17:27 | Emergency (ER) | payer MEDICAID, OTHER ==
--- NOTE | 2018-06-17 17:41 | EDM.PDOC ---
ED HPI GENERAL MEDICAL PROBLEM - General Chief Complaint: General Stated Complaint: LOW BACK/HIP PAIN/LOSS OF BLADDER FUNCTION Time Seen by Provider: 06/17/18 17:35 - History of Present Illness INITIAL COMMENTS - FREE TEXT/NARRATIVE: HISTORY AND PHYSICAL: History of present illness: Patient 37-year-old white female who has been seen multiple times in the ED for variety of different complaints many related to pain including back was seen 2 weeks prior for a fall and injured her right hip evaluation was unremarkable she was discharged home she states she has had problems with urination and describes what sounds like stress incontinence she denies any numbness weakness in her pain is primarily similar prior episodes. Review of systems: As per history of present illness and below otherwise all systems reviewed and negative. Past medical history: As per history of present illness and as reviewed below otherwise noncontributory. Surgical history: As per history of present illness and as reviewed below otherwise noncontributory. Social history: No reported history of drug or alcohol abuse. Family history: As per history of present illness and as reviewed below otherwise noncontributory. Physical exam: HEENT: Atraumatic, normocephalic, pupils reactive, negative for conjunctival pallor or scleral icterus, mucous membranes moist, throat clear, neck supple, nontender, trachea midline. Lungs: Clear to auscultation, breath sounds equal bilaterally, chest nontender. Heart: S1S2, regular, negative for clicks, rubs, or JVD. Abdomen: Soft, nondistended, nontender. Negative for masses or hepatosplenomegaly. Negative for costovertebral tenderness. Pelvis: Stable nontender. Genitourinary: Deferred. Rectal: Deferred. Extremities: Atraumatic, negative for cords or calf pain. Neurovascular unremarkable. Neuro: Awake, alert, oriented. Cranial nerves II through XII unremarkable. Cerebellum unremarkable. Motor and sensory unremarkable throughout. Exam nonfocal. Back: Patient has no vertebral body or point tenderness is able to stand on her toes back on her heels deep tendon reflexes motor and sensory are normal Diagnostics: CBC CMP UA CT lumbar spine Therapeutics: None Impression: #1 medical screening exam #2 2 weeks status post fall with right hip injury #3 history of chronic back pain Definitive disposition and diagnosis as appropriate pending reevaluation and review of above. - Related Data Allergies Allergy/AdvReac Type Severity Reaction Status Date / Time aspirin Allergy Hives Verified 06/17/18 17:50 ketorolac tromethamine Allergy Difficulty Verified 06/17/18 17:50 [From Toradol] Breathing NSAIDS (Non-Steroidal Allergy Airway Verified 06/17/18 17:50 Anti-Inflamma Tightness, hives metronidazole [From Flagyl] AdvReac Diarrhea Verified 06/17/18 17:50 Home Meds: Home Meds Gabapentin [Neurontin] 800 mg PO TID 03/07/18 [History] Cyclobenzaprine HCl [Amrix] 0 mg PO BID 06/17/18 [History] Past Medical History - Past Health History Medical/Surgical History: Denies Medical/Surgical History HEENT History: Reports: Other (See Below) Other HEENT History: cyst to posterior left ear Cardiovascular History: Reports: Other (See Below) Other Cardiovascular History: "palpitations" Respiratory History: Reports: Bronchitis, Recurrent Gastrointestinal History: Reports: None Genitourinary History: Reports: None COMBINER History: Reports: 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 Uterine Bleeding, Other (See Below) Other COMBINER History: blood clot in right ovary Musculoskeletal History: Reports: Fracture Neurological History: Reports: None Psychiatric History: Reports: None Endocrine/Metabolic History: Reports: Obesity/BMI 30+ Hematologic History: Reports: Other (See Below) Immunologic History: Reports: None Oncologic (Cancer) History: Reports: None Dermatologic History: Reports: None - Infectious Disease History Infectious Disease History: Reports: Chicken Pox - Past Surgical History Head Surgeries/Procedures: Reports: None Respiratory Surgical History: Reports: None GI Surgical History: Reports: Appendectomy, Cholecystectomy Female Surgical History: Reports: Hysterectomy, Tubal Ligation Neurological Surgical History: Reports: None Dermatological Surgical History: Reports: None Social & Family History - Family History Family Medical History: Noncontributory - Caffeine Use Caffeine Use: Reports: None - Living Situation & Occupation Living situation: Reports: , with Spouse, with Family (4 lids) Occupation: Unemployed ED ROS GENERAL - Review of Systems Review Of Systems: ROS reveals no pertinent complaints other than HPI. ED EXAM, GENERAL - Physical Exam Exam: See Below (See dictation) Course - Vital Signs Last Recorded V/S: Last Vital Signs Temp 36.7 C 06/17/18 17:30 Pulse 88 06/17/18 17:30 Resp 18 06/17/18 17:30 BP 129/77 06/17/18 17:30 Pulse Ox 99 06/17/18 17:30 - Orders/Labs/Meds Orders: Active Orders 24 hr Category Date Time Status Lumbar Spine wo Cont [CT] Stat Exams 06/17/18 17:38 Taken CMP [COMPREHENSIVE METABOLIC PN,CMP] [CHEM] Stat Lab 06/17/18 17:45 Received Labs: Laboratory Tests 06/17/18 06/17/18 06/17/18 Range/Units 17:45 18:28 18:28 WBC 12.19 H (4.0-11.0) K/uL RBC 5.68 (4.30-5.90) M/uL Hgb 14.3 (12.0-16.0) g/dL Hct 43.0 (36.0-46.0) % MCV 75.7 L (80.0-98.0) fL MCH 25.2 L (27.0-32.0) pg MCHC 33.3 (31.0-37.0) g/dL RDW Std Deviation 43.2 (28.0-62.0) fl RDW Coeff of Mallory 16 H (11.0-15.0) % Plt Count 291 (150-400) K/uL MPV 9.70 (7.40-12.00) fL Neut % (Auto) 82.5 H (48.0-80.0) % Lymph % (Auto) 13.9 L (16.0-40.0) % [place] % (Auto) 3.5 (0.0-15.0) % Eos % (Auto) 0.0 (0.0-7.0) % Baso % (Auto) 0.1 (0.0-1.5) % Neut # (Auto) 10.1 H (1.4-5.7) K/uL Lymph # (Auto) 1.7 (0.6-2.4) K/uL [place] # (Auto) 0.4 (0.0-0.8) K/uL Eos # (Auto) 0.0 (0.0-0.7) K/uL Baso # (Auto) 0.0 (0.0-0.1) K/uL Nucleated RBC % 0.0 /100WBC Nucleated RBCs # 0 K/uL Urine Color DARK YELLOW Urine Appearance SLT CLOUDY Urine pH 6.0 (5.0-8.0) Ur Specific [place] 1.020 (1.001-1.035) Urine Protein TRACE H (NEGATIVE) mg/dL Urine Glucose (UA) NEGATIVE (NEGATIVE) mg/dL Urine Ketones TRACE H (NEGATIVE) mg/dL Urine Occult Blood LARGE H (NEGATIVE) Urine Nitrite NEGATIVE (NEGATIVE) Urine Bilirubin SMALL H (NEGATIVE) Urine Ictotest NEGATIVE Urine Urobilinogen 0.2 (<2.0) EU/dL Ur Leukocyte Esterase NEGATIVE (NEGATIVE) Urine RBC 25-30 (0-2/HPF) Urine WBC 0-3 (0-5/HPF) Ur Epithelial Cells MODERATE (NONE-FEW) Urine Bacteria FEW (NEGATIVE) Urine Mucus LIGHT (NONE-MOD) Urine Opiates Screen POSITIVE (NEGATIVE) Ur Oxycodone Screen POSITIVE (NEGATIVE) Urine Methadone Screen NEGATIVE (NEGATIVE) Ur Barbiturates Screen NEGATIVE (NEGATIVE) Ur Phencyclidine Scrn NEGATIVE (NEGATIVE) Ur Amphetamine Screen NEGATIVE (NEGATIVE) U Methamphetamines Scrn NEGATIVE (NEGATIVE) U Benzodiazepines Scrn NEGATIVE (NEGATIVE) U Cocaine Metab Screen NEGATIVE (NEGATIVE) U Marijuana (THC) Screen NEGATIVE (NEGATIVE) Departure - Departure Time of Disposition: 18:49 Disposition: Home, Self-Care 01 Condition: Good Clinical Impression: Encounter for medical screening examination, UTI (urinary tract infection) - Discharge Information Referrals: PCP,Not In Area [Primary Care Provider] - Forms: ED Department Discharge Additional Instructions: The following information is given to patients seen in the emergency department who are being discharged to home. This information is to outline your options for follow-up care. We provide all patients seen in our emergency department with a follow-up referral. The need for follow-up, as well as the timing and circumstances, are variable depending upon the specifics of your emergency department visit. If you don't have a primary care physician on staff, we will provide you with a referral. We always advise you to contact your personal physician following an emergency department visit to inform them of the circumstance of the visit and for follow-up with them and/or the need for any referrals to a consulting specialist. The emergency department will also refer you to a specialist when appropriate. This referral assures that you have the opportunity for followup care with a specialist. All of these measure are taken in an effort to provide you with optimal care, which includes your followup. Under all circumstances we always encourage you to contact your private physician who remains a resource for coordinating your care. When calling for followup care, please make the office aware that this follow-up is from your recent emergency room visit. If for any reason you are refused follow-up, please contact the [facility] emergency department at and asked to speak to the emergency department charge nurse. Cipro Pyridium as prescribed follow-up primary medical doctor as needed as discussed and return as needed as discussed - My Orders Last 24 Hours: My Active Orders 06/17/18 17:38 Lumbar Spine wo Cont [CT] Stat 06/17/18 17:45 CMP [COMPREHENSIVE METABOLIC PN,CMP] [CHEM] Stat - Assessment/Plan Last 24 Hours: My Active Orders 06/17/18 17:38 Lumbar Spine wo Cont [CT] Stat 06/17/18 17:45 CMP [COMPREHENSIVE METABOLIC PN,CMP] [CHEM] Stat
[2018-06-17 17:50] VITALS: BP 129/77
[2018-06-17 18:54] LABS: CHLORIDE,CL 107 mmol/L (98-107); SODIUM,NA 139 mmol/L (136-145)
--- NOTE | 2018-06-18 14:42 | CT ---
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 Site : 1980 Study: CT Spine Lumbar [id number]/20/2019 6:10:16 PM Ordering Physician: Jose Jarrell Final Report: INDICATION: Low back pain. No history of trauma given. TECHNIQUE: CT scan of the lumbar spine without contrast. Soft tissue and bone window. Sagittal and coronal reconstructions. FINDINGS: T12-L1:Normal. L1-L2: Normal. L2-L3: Normal. L3-L4: Normal. L4-L5: There is loss of the disk space with diminished height. A broad-based annular disc bulge is present. No high-grade central or foraminal stenosis. No fracture or listhesis. L5-S1: Severe loss of disc height is present. Diffuse broad-based annular disc bulge. No high-grade central stenosis. Probable mild moderate foraminal encroachment with osteophytes and far lateral disc bulge at the lateral recess. This is symmetric. Early hypertrophic changes in the facet joints. Vacuum disk formation. Mild midline posterior spondylitic ridging. No fractures. No pars defects or listhesis. Soft tissues: No retroperitoneal or paraspinal soft tissue abnormality. Osseous structures: No focal or suspicious osseous lesions. IMPRESSION: 1. Disc degeneration at L5-S1 and mild foraminal encroachment with diffuse broad -based bulging. Correlate with symptoms. 2. Minimal posterior annular bulging L4-L5. 3. No fractures or suspicious osseous lesions. 4. If symptoms persist or intensify, consider evaluation with MRI of the lumbar spine. Please note that all CT scans at this facility use dose modulation, iterative reconstruction, and/or weight-based dosing when appropriate to reduce radiation dose to as low as reasonably achievable. Dictated by David Carrera MD @ Jun 17 2018 6:40PM (Electronic Signature) Report Signed by Proxy. [facility]OSPITALRich
== END 2018-06-17 18:58 | disposition home or self-care (01) ==
LOC: MW.ED 17:27
DX: S79.911A Unspecified injury of right hip, initial encounter (principal); N39.0 Urinary tract infection, site not specified; Z79.1 Long term (current) use of non-steroidal anti-inflammatories (NSAID); Z79.82 Long term (current) use of aspirin; Z79.899 Other long term (current) drug therapy; W19.XXXA Unspecified fall, initial encounter
CPT/HCPCS: 36415; 72131; 72131-26; 80053; 80305-QW; 81001; 85025; 99283; 99284-25

== ENCOUNTER 2018-09-05 21:57 | Emergency (ER) | payer MEDICAID, OTHER ==
[2018-09-05 22:12] VITALS: BP 107/67
[2018-09-05] MEDS ORDERED: Cyclobenzaprine 10 MG Tab PO ONE (22:26)
--- NOTE | 2018-09-05 22:27 | EDM.PDOC ---
ED HPI GENERAL MEDICAL PROBLEM - General Chief Complaint: Upper Extremity Injury/Pain Stated Complaint: RT SHOULDER HURTS Time Seen by Provider: 09/05/18 22:19 - History of Present Illness INITIAL COMMENTS - FREE TEXT/NARRATIVE: HISTORY AND PHYSICAL: History of present illness: The patient is a 38-year-old female who is been in this emergency department multiple times as well as in the [facility] for multiple medical problems and who has a long-standing history of right shoulder pain and a chronic injury and presents saying that she may have reinjured it this afternoon. The patient was seen earlier at [facility] and I have pulled that providers note for the patient presented complaining of several weeks of shoulder pain. . The patient is currently awaiting getting MRI performed and in fact saw Dr. Jc in our clinic on August 30 and has an MRI scheduled but she has not been given a time. She said that she did not get called saying that her insurance was approved and they have not called MRI to check in. According to the providers note in [facility] she returned saying to them saying that her teenage boys were wrestling about 4:30 this afternoon and she thought it would escalate so she got in between them she got bumped and fell and her arm is reinjured. He said that she had previously been followed by her PCP Dr. Rasmussen and he left the area so she now has assumed care with one of our providers, Dr. riley. The patient left [facility] without being evaluated by the bond underwriter when she was asked to put on again to have a physical exam. The patient says that she was at [facility] but she does not admit that she left there without being seen by the provider. The inspected report for prescriptions was performed by the [facility] and I reviewed that and she was prescribed 20 tablets of T3 along with gabapentin just [address] caryl Anderson. When I asked her if she was taking the Tylenol with codeine she said yes but it upsets her stomach. The patient says that her pain is more in the posterior shoulder area and she does not recall actually falling on the shoulder. She denies any coexisting symptomatology. Review of systems: As per history of present illness and below otherwise all systems reviewed and negative. Past medical history: As per history of present illness and as reviewed below otherwise noncontributory. Surgical history: As per history of present illness and as reviewed below otherwise noncontributory. Social history: No reported history of drug or alcohol abuse. Family history: As per history of present illness and as reviewed below otherwise noncontributory. Physical exam: General: Well-developed well-nourished overweight female who is nontoxic and vital signs are noted by me HEENT: Atraumatic, normocephalic, , negative for conjunctival pallor or scleral icterus, mucous membranes moist, throat clear, neck supple, nontender, trachea midline. Lungs: Clear to auscultation, breath sounds equal bilaterally, chest nontender. Heart: S1S2, regular rate and rhythm no overt murmurs Abdomen: Deferred Pelvis: Deferred Genitourinary: Deferred. Rectal: Deferred. Extremities: Atraumatic without any palpable bony deformities of her extremities including the right upper extremity from clavicle to hand. There is some trigger point tenderness but no fullness or joint effusion that I can appreciate and the patient mostly complains of pain with palpation of the posterior shoulder girdle and musculature. There is no clinical dislocation or malalignment appreciated and the patient can touch her contralateral shoulder. . Neurovascular unremarkable. Neuro: Awake, alert, oriented. Cranial nerves II through XII unremarkable. Cerebellum unremarkable. Motor and sensory unremarkable throughout. Exam nonfocal. Diagnostics: Patient was offered an x-ray due to the new injury and she declines Therapeutics: The patient has Tylenol with codeine as well as gabapentin at home and I have offered her Toradol but she has an allergy to that. I have offered her a dose of IM Norflex and she does not want a shot. The only muscle relaxer I have orally as Flexeril so I will give her a dose of that. I've advised the patient to utilize the pain medication that she has and to contact MRI in the morning to see what is going on with scheduling of her test as this will be the definitive diagnostic tool and then she can follow-up with orthopedics. I've also advised her to contact Dr. riley in the clinic tomorrow for further pain advice and management. I have specifically told her that this is an acute on chronic problem and that I am happy to help her with the acute pain but she does have told that she can utilize for this pain and in light of her history with multiple medications and prescriptions by multiple prescribers I do not feel comfortable prescribing her anything more and only treating her discomfort here. She and the seem annoyed and upset but I tried to reassure them that the MRI will give them the definitive test and they can follow up with Dr. riley Impression: Acute on chronic right shoulder pain Definitive disposition and diagnosis as appropriate pending reevaluation and review of above. right shoulder Pain Score (Numeric/FACES): 9 - Related Data Allergies Allergy/AdvReac Type Severity Reaction Status Date / Time aspirin Allergy Hives Verified 09/05/18 22:08 ketorolac tromethamine Allergy Difficulty Verified 09/05/18 22:08 [From Toradol] Breathing NSAIDS (Non-Steroidal Allergy Airway Verified 09/05/18 22:08 Anti-Inflamma Tightness, hives metronidazole [From Flagyl] AdvReac Diarrhea Verified 09/05/18 22:08 Home Meds: Home Meds Gabapentin [Neurontin] 1,200 mg PO TID 03/07/18 [History] Acetaminophen [Tylenol] 2,000 mg PO Q4H PRN 06/22/18 [History] Past Medical History - Past Health History Medical/Surgical History: Denies Medical/Surgical History HEENT History: Reports: Other (See Below) Other HEENT History: cyst to posterior left ear Cardiovascular History: Reports: Other (See Below) Other Cardiovascular History: "palpitations" Respiratory History: Reports: Asthma Gastrointestinal History: Reports: None Genitourinary History: Reports: None 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: 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 Uterine Bleeding, Other (See Below) Other ENGINE DESIGNER History: blood clot in right ovary Musculoskeletal History: Reports: Back Pain, Chronic, Fracture, Neck Pain, Chronic Other Musculoskeletal History: wrist fx Neurological History: Reports: Neuropathy, Peripheral Psychiatric History: Reports: None Endocrine/Metabolic History: Reports: Obesity/BMI 30+ Hematologic History: Reports: Other (See Below) Immunologic History: Reports: None Oncologic (Cancer) History: Reports: None Dermatologic History: Reports: None - Infectious Disease History Infectious Disease History: Reports: None - Past Surgical History Head Surgeries/Procedures: Reports: None HEENT Surgical History: Reports: Oral Surgery GI Surgical History: Reports: Appendectomy, Cholecystectomy Female Surgical History: Reports: Hysterectomy, Tubal Ligation Dermatological Surgical History: Reports: None Social & Family History - Family History Family Medical History: Noncontributory - Tobacco Use Smoking Status *Q: Never Smoker - Caffeine Use Caffeine Use: Reports: Coffee - Recreational Drug Use Recreational Drug Use: No - Living Situation & Occupation Living situation: Reports: , with Spouse, with Family (4 kids) Occupation: Unemployed Review of Systems - Review of Systems Review Of Systems: ROS reveals no pertinent complaints other than HPI. ED EXAM, GENERAL - Physical Exam Exam: See Below (see Dictation) Course - Vital Signs Last Recorded V/S: Last Vital Signs Temp 36.4 C 09/05/18 22:09 Pulse 85 09/05/18 22:09 Resp 18 09/05/18 22:09 BP 107/67 09/05/18 22:09 Pulse Ox 97 09/05/18 22:09 - Orders/Labs/Meds Orders: Active Orders 24 hr Category Date Time Status Cyclobenzaprine [Flexeril] Med 09/05/18 22:26 Once 10 mg PO ONETIME ONE Medication Orders Cyclobenzaprine HCl (Flexeril) 10 mg PO ONETIME ONE Stop: 09/05/18 22:27 Meds: Medications Generic Name Dose Route Start Last Admin Trade Name Freq PRN Reason Stop Dose Admin Cyclobenzaprine HCl 10 mg 09/05/18 22:26 Flexeril PO 09/05/18 22:27 ONETIME ONE Departure - Departure Time of Disposition: 22:33 Disposition: Home, Self-Care 01 Condition: Good Clinical Impression: Right shoulder pain Qualifiers: Chronicity: unspecified Qualified Code(s): M25.511 - Pain in right shoulder - Discharge Information Forms: ED Department Discharge Additional Instructions: The following information is given to patients seen in the emergency department who are being discharged to home. This information is to outline your options for follow-up care. We provide all patients seen in our emergency department with a follow-up referral. The need for follow-up, as well as the timing and circumstances, are variable depending upon the specifics of your emergency department visit. If you don't have a primary care physician on staff, we will provide you with a referral. We always advise you to contact your personal physician following an emergency department visit to inform them of the circumstance of the visit and for follow-up with them and/or the need for any referrals to a consulting specialist. The emergency department will also refer you to a specialist when appropriate. This referral assures that you have the opportunity for followup care with a specialist. All of these measure are taken in an effort to provide you with optimal care, which includes your followup. Under all circumstances we always encourage you to contact your private physician who remains a resource for coordinating your care. When calling for followup care, please make the office aware that this follow-up is from your recent emergency room visit. If for any reason you are refused follow-up, please contact the [facility] emergency department at and ask to speak to the emergency department charge nurse. [facility] Primary care- Internal Medicine and Family [facility] [address] [place] [id number] [facility] Specialty Care--Orthopedic clinic Professional [facility] [address] [place] [id number] Please contact MRI in the morning to see whether at with scheduling your MRI and also contact Dr. Riley , your new PCP in the clinic to discuss with him in management options. Continue to use the medications that you have and that you received 2 days ago and ice the area to reduce swelling and inflammation. You may also call and schedule an appointment for follow-up in the orthopedics clinic but they will also like to have the MRI prior to seeing you so try to get the MRI scheduled and then get the orthopedics clinic to schedule you after that test. Turned ER as needed and as discussed. - My Orders Last 24 Hours: My Active Orders 09/05/18 22:26 Cyclobenzaprine [Flexeril] 10 mg PO ONETIME ONE - Assessment/Plan Last 24 Hours: My Active Orders 09/05/18 22:26 Cyclobenzaprine [Flexeril] 10 mg PO ONETIME ONE
== END 2018-09-05 22:40 | disposition home or self-care (01) ==
LOC: MW.ED 21:57
DX: M25.511 Pain in right shoulder (principal); G89.29 Other chronic pain; Z88.6 Allergy status to analgesic agent; Z88.8 Allergy status to other drugs, medicaments and biological substances; Z88.2 Allergy status to sulfonamides; Z79.899 Other long term (current) drug therapy
CPT/HCPCS: 99283

== ENCOUNTER 2019-06-25 16:57 | Emergency (ER) | payer MEDICAID, OTHER ==
[2019-06-25 17:12] VITALS: BP 122/58; PULSE 76
--- NOTE | 2019-06-25 17:20 | EDM.PDOC ---
ED HPI GENERAL MEDICAL PROBLEM - General Chief Complaint: Lower Extremity Injury/Pain Stated Complaint: left knee injury Time Seen by Provider: 06/25/19 17:14 Source of Information: Reports: Patient History Limitations: Reports: No Limitations - History of Present Illness INITIAL COMMENTS - FREE TEXT/NARRATIVE: HISTORY AND PHYSICAL: History of present illness: Patient is a 38-year-old female presents to the ED with complaint of left knee pain. Patient states she had an injury 2 months ago and had a normal x-ray. She states she has continued to have pain and is scheduled to have an MRI in 2 days. She states a couple of days ago she slipped on the ice injuring her left knee and landing on it. She states has been taking tylenol with minimal relief in pain. She states she has pain in her calf as well. Review of systems: As per history of present illness and below otherwise all systems reviewed and negative. Past medical history: As per history of present illness and as reviewed below otherwise noncontributory. Surgical history: As per history of present illness and as reviewed below otherwise noncontributory. Social history: No reported history of drug or alcohol abuse. Family history: As per history of present illness and as reviewed below otherwise noncontributory. Physical exam: General: Patient sitting comfortably in no acute distress and nontoxic appearing HEENT: Atraumatic, normocephalic, pupils reactive, negative for conjunctival pallor or scleral icterus, mucous membranes moist, throat clear, neck supple, nontender, trachea midline. No meningeal signs. Lungs: Clear to auscultation, breath sounds equal bilaterally, chest nontender. Heart: S1S2, regular, negative for clicks, rubs, or overt murmur. Abdomen: Soft, nondistended, nontender. Negative for masses or hepatosplenomegaly. Negative for costovertebral tenderness. No rigidity, rebound , guarding. Pelvis: Stable nontender. Genitourinary: Deferred. Rectal: Deferred. Extremities: Minimal calf swelling without erythema or warmth. There are varicose veins noted. Atraumatic, negative for cords or calf pain. Neurovascular unremarkable. Neuro: Awake, alert, oriented. Cranial nerves II through XII unremarkable. Cerebellum unremarkable. Motor and sensory unremarkable throughout. Exam nonfocal. Notes: Diagnostics: Left venous doppler US Therapeutics: 1g Tylenol PO Prescriptions: Impression: Left knee pain, left calf pain Plan: Patient eloped ED prior to venous doppler US Definitive disposition and diagnosis as appropriate pending reevaluation and review of above. Left Knee Pain Score (Numeric/FACES): 7 - Related Data Allergies Allergy/AdvReac Type Severity Reaction Status Date / Time aspirin Allergy Hives Verified 06/25/19 17:06 ketorolac tromethamine Allergy Difficulty Verified 06/25/19 17:06 [From Toradol] Breathing NSAIDS (Non-Steroidal Allergy Airway Verified 06/25/19 17:06 Anti-Inflamma Tightness, hives metronidazole [From Flagyl] AdvReac Diarrhea Verified 06/25/19 17:06 Home Meds: Home Meds Gabapentin [Neurontin] 800 mg PO TID 03/07/18 [History] Acetaminophen [Tylenol] 2,000 mg PO Q4H PRN 06/22/18 [History] Past Medical History - Past Health History Medical/Surgical History: Denies Medical/Surgical History HEENT History: Reports: Other (See Below) Other HEENT History: cyst to posterior left ear Cardiovascular History: Reports: Other (See Below) Other Cardiovascular History: "palpitations" Respiratory History: Reports: Asthma Gastrointestinal History: Reports: None Genitourinary History: Reports: None 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 Uterine Bleeding, Other (See Below) Other 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 RAIL 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 OPERATOR History: blood clot in right ovary Musculoskeletal History: Reports: Back Pain, Chronic, Fracture, Neck Pain, Chronic Other Musculoskeletal History: wrist fx Neurological History: Reports: Neuropathy, Peripheral Psychiatric History: Reports: None Endocrine/Metabolic History: Reports: Obesity/BMI 30+ Hematologic History: Reports: Other (See Below) Immunologic History: Reports: None Oncologic (Cancer) History: Reports: None Dermatologic History: Reports: None - Infectious Disease History Infectious Disease History: Reports: Chicken Pox - Past Surgical History Head Surgeries/Procedures: Reports: None HEENT Surgical History: Reports: Oral Surgery GI Surgical History: Reports: Appendectomy, Cholecystectomy Female Surgical History: Reports: Hysterectomy, Tubal Ligation Dermatological Surgical History: Reports: None Social & Family History - Family History Family Medical History: Noncontributory - Tobacco Use Smoking Status *Q: Former Smoker Used Tobacco, but Quit: Yes Month/Year Tobacco Last Used: 2018 - Caffeine Use Caffeine Use: Reports: None - Recreational Drug Use Recreational Drug Use: No - Living Situation & Occupation Living situation: Reports: , with Spouse, with Family (4 kids) Occupation: Unemployed Review of Systems - Review of Systems Review Of Systems: Comprehensive ROS is negative, except as noted in HPI. ED EXAM, GENERAL - Physical Exam Exam: See Below (see dictation) Course - Vital Signs Last Recorded V/S: Last Vital Signs Temp 97.3 F 06/25/19 17:07 Pulse 76 06/25/19 17:07 Resp 16 06/25/19 17:07 BP 122/58 L 06/25/19 17:07 Pulse Ox 100 06/25/19 17:07 - Orders/Labs/Meds Orders: Active Orders 24 hr Category Date Time Status Venous Doppler Lwr Ext Lt [US] Stat Exams 06/25/19 17:20 Ordered Meds: Medications Discontinued Medications Generic Name Dose Route Start Last Admin Trade Name Gerber PRN Reason Stop Dose Admin Acetaminophen 1,000 mg 06/25/19 17:34 06/25/19 17:42 Tylenol Extra Strength PO 06/25/19 17:35 1,000 mg ONETIME ONE Administration Departure - Departure Time of Disposition: 18:04 Disposition: Eloped 07 Condition: Good Clinical Impression: Pain of left calf, Eloped from emergency department - Discharge Information Referrals: PCP,None [Primary Care Provider] - Forms: ED Department Discharge Sepsis Event Note - Evaluation Sepsis Screening Result: No Definite Risk - Focused Exam Vital Signs: Vital Signs Temp Pulse Resp BP Pulse Ox 06/25/19 17:07 97.3 F 76 16 122/58 L 100 Date Exam was Performed: 06/25/19 Time Exam was Performed: 18:04 - My Orders Last 24 Hours: My Active Orders 06/25/19 17:20 Venous Doppler Lwr Ext Lt [US] Stat - Assessment/Plan Last 24 Hours: My Active Orders 06/25/19 17:20 Venous Doppler Lwr Ext Lt [US] Stat
[2019-06-25] MEDS ORDERED: Acetaminophen 500 MG Tab PO ONE (17:34)
== END 2019-06-25 17:44 | disposition left against medical advice (07) ==
LOC: MW.ED 16:57
DX: M25.562 Pain in left knee (principal); M79.662 Pain in left lower leg; E66.9 Obesity, unspecified; Z68.41 Body mass index [BMI] 40.0-44.9, adult; Z87.891 Personal history of nicotine dependence; Z88.8 Allergy status to other drugs, medicaments and biological substances; Z79.899 Other long term (current) drug therapy
CPT/HCPCS: 93971; 99283; A9270; 99282